=== PATIENT | female | born 1995 | race African-American/Black ===

== ENCOUNTER 2021-06-09 16:50 | Emergency (ER) | payer OTHER, SELFPAY ==
[~2021-06-09] VITALS: Ht 149.9 cm; Wt 45.0 kg
[2021-06-09 17:06] VITALS: BP 116/71
[2021-06-09] MEDS ORDERED: ACETAMINOPHEN 325 MG TAB PO ONE (17:35)
== END 2021-06-09 20:09 | disposition home or self-care (01) ==
LOC: M ED 16:50 → EDBD 16:50 → M ED 20:09
DX: S80.811A Abrasion, right lower leg, initial encounter (principal); V49.00XA Driver injured in collision with unspecified motor vehicles in nontraffic accident, initial encounter; J45.909 Unspecified asthma, uncomplicated; F17.200 Nicotine dependence, unspecified, uncomplicated; Z88.0 Allergy status to penicillin